=== PATIENT | female | born 1980 | race Caucasian/White ===

== ENCOUNTER 2016-06-05 06:53 | Inpatient (IN) | payer OTHER ==
[~2016-06-05] VITALS: Ht 177.8 cm; Wt 62.1 kg
[2016-06-05 11:57] VITALS: BP_SYST 135; RESP 18; TEMP 98.5
[2016-06-05 11:58] VITALS: Ht 177.8 cm; Wt 62.1 kg
[2016-06-05] MEDS ORDERED: LORAZEPAM 2 MG TAB PO PRN (12:10)
[2016-06-05] MEDS ORDERED: HALOPERIDOL 5 MG/ML VIAL IM PRN (12:10)
[2016-06-05] MEDS ORDERED: MAG HYDROX 30 ML UDC PO PRN (12:10)
[2016-06-05] MEDS ORDERED: DIPHENHYDRAMINE 50 MG/ML VIAL IM PRN (12:10)
[2016-06-05] MEDS ORDERED: DIPHENHYDRAMINE 50 MG CAP PO PRN (12:10)
[2016-06-05] MEDS ORDERED: ALU/MAG/SIM 30 ML UDC PO PRN (12:10)
[2016-06-05] MEDS ORDERED: HALOPERIDOL 5 MG TAB PO PRN (12:10)
[2016-06-05] MEDS ORDERED: LORAZEPAM 2 MG/ML VIAL IM PRN (12:10)
[2016-06-05] MEDS: MULTIVITS/MINERALS (THERAGRAN M) TAB PO SCH (14:00)
[2016-06-05] MEDS: NICOTINE 21 MG/24 HR TRANSDERM SCH (14:00)
[2016-06-05 19:00] VITALS: BP_SYST 134; RESP 18; TEMP 98.7
[2016-06-05] MEDS: ACETAMINOPHEN 325 MG TAB PO PRN (20:02)
[2016-06-05] MEDS: lamoTRIgine 100 MG TAB PO SCH (20:04)
[2016-06-06 07:40] VITALS: BP_SYST 141; RESP 18; TEMP 98.6
[2016-06-06] MEDS ORDERED: MISSING DOSE XX ONE (07:55)
[2016-06-06] MEDS: VENLAFAXINE XR 75 MG CAP PO SCH (09:50)
[2016-06-06] MEDS: NICOTINE 21 MG/24 HR TRANSDERM SCH (09:50)
[2016-06-06] MEDS: MULTIVITS/MINERALS (THERAGRAN M) TAB PO SCH (09:50)
[2016-06-06] MEDS: ACETAMINOPHEN 325 MG TAB PO PRN (10:09)
[2016-06-06] MEDS ORDERED: LOPERAMIDE 2 MG CAPSULE PO PRN (11:05)
[2016-06-06] MEDS ORDERED: DICYCLOMINE 20 MG TAB PO PRN (11:05)
[2016-06-06] MEDS ORDERED: PROMETHAZINE 25 MG/ML VIAL IM PRN (11:05)
[2016-06-06] MEDS ORDERED: PROMETHAZINE 12.5 MG TAB PO PRN (11:05)
[2016-06-06] MEDS ORDERED: LOPERAMIDE 2 MG CAPSULE PO ONE (11:05)
[2016-06-06] MEDS: GABAPENTIN 400 MG CAP PO SCH ×3 (13:18→20:35)
[2016-06-06] MEDS ORDERED: ETHINYL ESTRADIOL PO SCH ×2 (14:14→14:17)
[2016-06-06] MEDS ORDERED: LEVONORGESTREL PO SCH ×2 (14:14→14:17)
[2016-06-06] MEDS ORDERED: *PINK BRACELET XX ONE (14:20)
[2016-06-06 19:00] VITALS: BP_SYST 115; RESP 16; TEMP 99
[2016-06-06] MEDS: *HOME MEDS IN MED CART XX SCH (19:31)
[2016-06-06] MEDS: lamoTRIgine 100 MG TAB PO SCH (20:35)
[2016-06-06] MEDS: TRAZODONE 50 MG TAB PO PRN (20:35)
[2016-06-06] MEDS: NON-FORMULARY MEDICATION PO SCH (20:35)
[2016-06-07] MEDS: Ibuprofen 400 MG TAB PO PRN ×2 (02:10→12:49)
[2016-06-07] MEDS: NICOTINE 21 MG/24 HR TRANSDERM SCH (07:15)
[2016-06-07] MEDS: *HOME MEDS IN MED CART XX SCH ×2 (07:15→20:00)
[2016-06-07] MEDS: MULTIVITS/MINERALS (THERAGRAN M) TAB PO SCH (09:00)
[2016-06-07] MEDS: VENLAFAXINE XR 75 MG CAP PO SCH (09:16)
[2016-06-07] MEDS: GABAPENTIN 400 MG CAP PO SCH ×4 (09:16→21:06)
[2016-06-07 09:17] VITALS: BP_SYST 136; RESP 16; TEMP 99.2
[2016-06-07] MEDS: ARIPiprazole 5 MG TABLET PO SCH (11:32)
[2016-06-07 14:39] VITALS: BP_SYST 136; RESP 16; TEMP 99.2
[2016-06-07 14:55] VITALS: BP_SYST 136; RESP 16; TEMP 99.2
[2016-06-07 15:59] VITALS: BP_SYST 133; RESP 18; TEMP 99
[2016-06-07] MEDS ORDERED: LORAZEPAM 2 MG TAB PO PRN (16:10)
[2016-06-07] MEDS ORDERED: LORAZEPAM 2 MG TAB PO ONE (16:10)
[2016-06-07] MEDS ORDERED: LORAZEPAM 0.5 MG TAB ONE (16:14)
[2016-06-07] MEDS ORDERED: LORAZEPAM 0.5 MG TAB PO PRN (16:15)
[2016-06-07] MEDS ORDERED: LORAZEPAM 0.5 MG TAB PO ONE (16:25)
[2016-06-07 17:36] VITALS: BP_SYST 143; RESP 18; TEMP 97.8
[2016-06-07 19:04] VITALS: BP_SYST 128; RESP 20; TEMP 99.1
[2016-06-07] MEDS: lamoTRIgine 100 MG TAB PO SCH (21:06)
[2016-06-07] MEDS: NON-FORMULARY MEDICATION PO SCH (21:06)
[2016-06-07] MEDS: TRAZODONE 50 MG TAB PO PRN (21:07)
[2016-06-08] MEDS: *HOME MEDS IN MED CART XX SCH (08:09)
[2016-06-08] MEDS: MULTIVITS/MINERALS (THERAGRAN M) TAB PO SCH (08:38)
[2016-06-08] MEDS: ARIPiprazole 5 MG TABLET PO SCH (08:38)
[2016-06-08] MEDS: VENLAFAXINE XR 75 MG CAP PO SCH (08:38)
[2016-06-08] MEDS: GABAPENTIN 400 MG CAP PO SCH (08:38)
[2016-06-08] MEDS: NICOTINE 21 MG/24 HR TRANSDERM SCH (08:43)
[2016-06-08 10:16] VITALS: BP_SYST 128; RESP 20; TEMP 99.1
[2016-06-08 10:21] VITALS: BP_SYST 128; RESP 20; TEMP 99.1
[2016-06-08 11:05] VITALS: BP_SYST 128; RESP 20; TEMP 99.1
[2016-06-08 12:42] VITALS: BP_SYST 128; RESP 20; TEMP 99.1
== END 2016-06-08 12:45 | disposition home or self-care (01) | DRG 897 ==
LOC: ENRESERVTM → ENRESERVDT → ER 06:53 → EMR 11:09 → PSY 11:44
PROVIDERS: ADMIT Psychiatry & Neurology Psychiatry; ATTEND Psychiatry & Neurology Psychiatry
DX: F11.24 Opioid dependence with opioid-induced mood disorder (principal); F32.9 Major depressive disorder, single episode, unspecified
CPT/HCPCS: 36415; 80053; 80307; 80320; 80329; 81001; 84703; 85025